=== PATIENT | female | born 1990 | race African-American/Black ===

== ENCOUNTER 2016-10-25 09:56 | Emergency (ER) | payer MEDICAID ==
[~2016-10-25] VITALS: Ht 167.6 cm; Wt 59.0 kg
--- NOTE | 2016-10-25 10:16 | Emergency Room Report ---
History of Present Illness General Chief Complaint: Lower Extremity Injury Source: Patient Present Illness HPI Patient presents with complaints of right foot pain This occurred yesterday while trying to step off a curb she essentially missed a step And twisted the foot pain is localized to the dorsal right foot 6/10 worse with ambulation Denies any ankle or knee pain denies any other fall or trauma denies any loss of consciousness Allergies: Coded Allergies: No Known Allergies (Unverified , 10/25/16) Patient History Past Medical History: see triage record Pertinent Family History: none Last Menstrual Period: 10/04/2016 Reviewed Nursing Documentation: PMH: Agreed, PSxH: Agreed Nursing Documentation-PMH Past Medical History: No Stated History Review of Systems All Other Systems: negative except mentioned in HPI Physical Exam Vital Signs Date Time Temp Pulse Resp B/P Pulse Ox O2 Delivery O2 Flow Rate FiO2 10/25/16 10:02 98.1 84 14 127/85 98 Room Air Sp02 EP Interpretation: reviewed, normal General Appearance: well appearing, no apparent distress Head: normocephalic, atraumatic Eyes: bilateral eye EOMI, bilateral eye PERRL ENT: normal pharynx, no angioedema Musculoskeletal: swelling - And discomfort noted to the dorsal right foot medially and also mildly laterally Neurologic: alert, oriented x3, responsive Skin: other - Some mild swelling and erythema as noted above Lymphatic: no adenopathy Medical Decision Making Diagnostic Impression: Primary Impression: Injury of lower extremity Additional Impression: Foot sprain ER Course Patient's imaging did not show any obvious acute pathology Appears to be a sprain/strain of the foot Patient is essentially ambulatory Was given anti-inflammatories and stable for close outpatient followup Other X-Ray Diagnostic Results Other X-Ray Diagnostic Results : EP Interpretation: Yes Findings: no fractures, no dislocation, no soft tissue swelling Number of Views: 3 - right foot Last Vital Signs Date Time Temp Pulse Resp B/P Pulse Ox O2 Delivery O2 Flow Rate FiO2 10/25/16 10:02 98.1 84 14 127/85 98 Room Air Status: improved Disposition: HOME, SELF-CARE Condition: Improved Scripts Ibuprofen* (MOTRIN*) 600 Mg Tablet 600 MG ORAL Q8H Y for For Pain, #20 TAB 0 Refills Prov: CITLALI JOINER D.O. 10/25/16 Additional Instructions: Patient is provided with the discharge instructions notified to follow up with primary doctor in the next 2-3 days otherwise return to the er with any worsening symptoms. CITLALI JOINER D.O. Oct 25, 2016 10:16
--- NOTE | 2016-10-25 11:03 | Diagnostic Imaging Report ---
Indication: Pain Comparison: None Findings: 3 views of the right foot were obtained. No acute fractures, malalignment, erosions or periostitis are identified. Bone mineralization is within normal limits. Soft tissues are unremarkable. Impression: Negative examination of the right foot.
[2016-10-25] MEDS ORDERED: IBUPROFEN600 MG ORAL (11:42)
[2016-10-25 11:58] VITALS: BP 127/81
== END 2016-10-25 12:01 | disposition home or self-care (01) ==
LOC: EMR 10:45
DX: S93.601A Unspecified sprain of right foot, initial encounter (principal); X50.1XXA Overexertion from prolonged static or awkward postures, initial encounter; Y92.9 Unspecified place or not applicable
CPT/HCPCS: 99283